=== PATIENT | female | born 1945 | race Caucasian/White ===

== ENCOUNTER 2016-05-27 10:53 | Day surgery (SDC) | payer MEDICARE ==
[2016-05-23 16:35] VITALS: BMI 33.7
[~2016-05-27 10:53] MED LIST: DEXAMETHASONE SOD PHOSPHATE 10 MG/ML 1 ML VIAL IV ONE; LACTATED RINGERS 1,000 ML IV SCH; LIDOCAINE 1% 20 ML VIAL (10MG/ML) FOR IV START INTRADERMA PRN; MIDAZOLAM 2 MG/2 ML VIAL IV PRN; ONDANSETRON 4 MG/2 ML VIAL IVP ONE; SCOPOLAMINE 1.5MG/72HR PATCH TRANSDERM ONE
[2016-05-27] MEDS: FLURBIPROFEN 0.03% OPHTH DROPS 2.5 ML BTL OP ONE ×3 (11:31→11:50)
[2016-05-27 11:33] VITALS: RESP 16; TEMP 98.1
[2016-05-27] MEDS: CYCLOPENTOLATE 1% OPHTH SOLN 2 ML BTL OP ONE ×3 (11:34→11:53)
[2016-05-27] MEDS: PHENYLEPHRINE 10% OPHTH DROPS 5 ML BTL OP ONE ×3 (11:40→11:56)
[2016-05-27] MEDS ORDERED: PROPOFOL 10 MG/ML 20 ML VIAL IV ONE (12:18)
[2016-05-27] MEDS ORDERED: BALANCED SALT IRRIG SOLN COMB2 15 ML IRRIG.SOLN INTRAOCULA ONE (12:36)
[2016-05-27] MEDS ORDERED: HYALURONATE SODIUM INTRAOCULAR 1 EACH SYRINGE (10MG/ML) INTRAOCULA ONE (12:36)
[2016-05-27] MEDS ORDERED: EPINEPHrine (PF) 0.5 ML in BALANCED SALT IRRIG SOLN COMB2 500 ML IRRIGATION ONE (12:37)
--- NOTE | 2016-05-27 12:43 | P.OP ---
Date of Procedure: 05/27/16 Procedure(s) Performed: PREOPERATIVE DIAGNOSIS: Cataract, right eye. POSTOPERATIVE DIAGNOSIS: Cataract, right eye. OPERATION: Phacoemulsification cataract, right eye. DESCRIPTION OF PROCEDURE: The patient was taken to the preoperative holding area. Intravenous Propofol was given so as to bring about adequate sedation. The following mixture was given for local anesthesia: 5 mL of 2% lidocaine, 5 mL of 0.75% Marcaine, and 1 mL of Wydase. Approximately 4 mL was injected in the retrobulbar space of the surgical eye. Additional 1 mL was then directed to the temporal area of the surgical eye. This was performed to allow adequate neurological block of the facial muscles. The patient was revived and then taken into the operative room. The patient was prepped and draped in the usual sterile manner for the operative eye. A lid speculum was put into position. The conjunctiva was resected back from the limbus in the 12 o'clock position. Bleeding was controlled with electrocautery. A #69 blade was then used and a half-thickness scleral incision approximately 1-mm posterior to the limbus was made on bare sclera. This was shelved in the clear cornea using a crescent knife. Next a 15-degree blade was used to make a stab incision at the 3 o' clock position at the corneolimbal interface. Keratome blade was then used and the superior wound was extended into the anterior chamber. Viscoelastic was injected into the anterior chamber and to maintain its form. Next, a cystotome was used and a continuous anterior capsulotomy was made without difficulty. Hydrodissection using a blunt cannula and BSS was performed. Phaco probe was then employed and a groove extending from 12 to 6 o'clock in the lens was created. A Victorino wand was used through the stab incision so as to perform a divide and conquer technique. Next an irrigation aspiration probe was utilized and any residual cortex was removed from the eye. Again, viscoelastic was injected into the anterior chamber. An Patrice posterior chamber lens implant was placed in the cartridge and injected into the anterior chamber without difficulty. The [employer] Medical[employer] hook was utilized to spin the lens into position and this was again performed without any difficulty. The irrigation and aspiration probe was again employed and any residual viscoelastic was removed from the eye. Then BSS was injected into the limbal stab incision and the anterior chamber re-inflated. The conjunctiva was reapproximated using electrocautery. One drop of 0.25% Timoptic was placed over the corneal along with TobraDex ophthalmic ointment. Two sterile patches and a Foster eye shield were taped into position. The patient was transported to the recovery room in stable condition. Pathology: none sent Condition: stable Disposition: same day
[2016-05-27 12:53] VITALS: BP 139/78; PULSE 88
[2016-05-27] MEDS ORDERED: BUPIVACAINE (PF) 0.75% 5 ML, LIDOCAINE 4% (PF) 5 ML, HYALURONIDASE, HUMAN RECOMB 150 UNIT MISCELLANE ONE ×3 (23:00)
[2016-05-27] MEDS ORDERED: GENTAMICIN/PREDNISOL AC OPHTH OINT 3.5GM OPHTHALMIC ONE (23:00)
[2016-05-27] MEDS ORDERED: TIMOLOL 0.5% OPHTH SOLN (PF) 0.2 ML DROPERETTE OP ONE (23:00)
== END 2016-05-27 13:40 | disposition home or self-care (01) ==
LOC: OR 10:53
PROVIDERS: ATTEND Ophthalmology
DX: H26.9 Unspecified cataract (principal); I10 Essential (primary) hypertension; Z79.899 Other long term (current) drug therapy
CPT/HCPCS: 66984; V2632; J2001; J3470; J0171; J2704; 99152; 99153

== ENCOUNTER 2017-10-16 20:32 | Emergency (ER) | payer MEDICARE ==
[2017-10-16 20:44] VITALS: BP 157/85; PULSE 85; RESP 16; TEMP 98.4
--- NOTE | 2017-10-16 21:38 | ED ---
Extremity Problem HPI - General Chief complaint: Extremity Problem,Nontraumatic Stated complaint: Knee injury Time Seen by Provider: 10/16/17 21:29 Source: patient, RN notes reviewed Mode of arrival: wheelchair Limitations: no limitations - History of Present Illness Initial comments: This is a 72-year-old female who presents to the emergency department with chief complaint of left knee pain. Patient states that last week her left knee locked up as her dog tried to pull her. She states that for the next couple of days she experienced some left knee pain. She states that this then went away. Today while walking up a set of stairs she went to bear weight on the left leg and her left knee gave out. She states that pain is felt behind her knee and the medial aspect of her knee. She states that she has been taking Tylenol and applying a cream that was prescribed for arthritis. Patient does state that she has an appointment scheduled with Dr. Marcus of orthopedics for Thursday. She denies any other injuries or trauma. Denies fevers or chills, chest pain or shortness of breath, abdominal pain, nausea or vomiting. - Related Data Home Medications Medication Instructions Recorded Confirmed Albuterol Sulfate [Proair Hfa] 2 puff INHALATION RT-Q6H PRN 04/14/16 10/16/17 Cholecalciferol [Vitamin D3] 2,000 unit PO DAILY 04/14/16 10/16/17 Cranberry + Vit C 1 tab PO BID 04/14/16 10/16/17 Magnesium Gluconate [Magonate] 500 mg PO DAILY 04/14/16 10/16/17 Triamterene-Hctz 37.5-25Mg 1 tab PO DAILY 04/14/16 10/16/17 [Maxzide 37.5-25] Diclofenac Sodium [Voltaren Gel] 2 gram TOPICAL BID PRN 10/16/17 10/16/17 Vitamin E (Dl,Tocopheryl Acet) 400 unit PO DAILY 10/16/17 10/16/17 [Vitamin E] Allergies Allergy/AdvReac Type Severity Reaction Status Date / Time mold,mildew,dog Allergy Cough Uncoded 10/16/17 20:44 Review of Systems ROS Statement: Those systems with pertinent positive or pertinent negative responses have been documented in the HPI. ROS Other: All systems not noted in ROS Statement are negative. Past Medical History Past Medical History: Eye Disorder, Hypertension, Musculoskeletal Disorder, Osteoarthritis (OA), Pneumonia Additional Past Medical History / Comment(s): optical migraines. MINOR irregular heartbeat. Tested positive for lupus 20 yrs ago. SPINAL STENOSIS. GETS ALLERGY INJ WEEKLY. CATARACT RT EYE. History of Any Multi-Drug Resistant Organisms: None Reported Past Surgical History: Section, Hysterectomy, Orthopedic Surgery Additional Past Surgical History / Comment(s): chester carpal tunnel, rt shoulder rotator cuff. EXC LT CATARACT 04/15/16. Past Anesthesia/Blood Transfusion Reactions: Motion Sickness Past Psychological History: No Psychological Hx Reported Smoking Status: Former smoker - Past Family History Father Family Medical History: Cancer Mother Family Medical History: Deep Vein Thrombosis (DVT) General Exam - General Exam Comments Initial Comments: General: Awake and alert, well-developed; in no apparent distress. Lying comfortably on ED stretcher with at bedside. HEENT: Head atraumatic, normocephalic. Pupils are equal, round and reactive to light. Extraocular movements intact. Oropharynx moist without erythema or exudate. Neck: Supple. Normal ROM. Cardiovascular: Regular rate and rhythm. No murmurs, rubs or gallops. Chest symmetrical. Respiratory: Lungs clear to auscultation bilaterally. No wheezes, rales or rhonchi. Normal respiratory effort with no use of accessory muscles. Musculoskeletal: Normal range of motion of the left knee, however pain is elicited with partial flexion. Positive valgus stress. No soft tissue swelling, ecchymosis or erythema. No gross deformities. Sensation is intact. Pedal pulses are 2+ equal and palpable bilaterally. Skin: [place], warm and dry without rashes or lesions. Neurological: Alert and oriented x3. CN II-XII grossly intact. Speech is fluent and answers are appropriate. No focal neuro deficits. Psychiatric: Normal mood and affect. No overt signs of depression or anxiety noted. Limitations: no limitations Course Vital Signs 10/16/17 20:40 Temperature 98.4 F Pulse Rate 85 Respiratory 16 Rate Blood Pressure 157/85 O2 Sat by Pulse 97 Oximetry Medical Decision Making - Medical Decision Making This is a 72-year-old female who presents to the emergency department with chief complaint of left knee pain. Patient reports her left knee giving out while going up some stairs today. She complains of pain to the posterior and medial aspect of the left knee. X-ray was obtained which revealed no acute abnormalities. Patient provided with a knee immobilizer. Recommended ibuprofen or Tylenol, ice and follow-up with Dr. Marcus on Thursday as scheduled. Patient is in agreement with plan and voices understanding. All questions were answered. - Radiology Data Radiology results: report reviewed, image reviewed X-ray left knee impression: Negative left knee exam. Disposition Clinical Impression: Acute internal derangement of left knee Disposition: HOME SELF-CARE Condition: Good Instructions: Knee Sprain (ED), Knee Immobilizer (ED) Additional Instructions: Please rest, ice, elevate and wear knee immobilizer while ambulating. Please follow up with Dr. Marcus on Thursday as scheduled. Please follow up with primary care provider within 1-2 days. Return to emergency department if symptoms should worsen or any concerns arise. Is patient prescribed a controlled substance at d/c from ED?: No Referrals: Arjun Hill MD [Primary Care Provider] - 1-2 days Time of Disposition: 22:12
--- NOTE | 2017-10-16 21:58 | XR ---
EXAMINATION TYPE: XR knee complete LT DATE OF EXAM: 10/16/2017 COMPARISON: NONE HISTORY: Left knee pain TECHNIQUE: 3 views FINDINGS: I see no fracture nor dislocation. Joint spaces are normal. There is some spurring on the s uperior patella. IMPRESSION: Negative left knee exam.
== END 2017-10-16 22:30 | disposition home or self-care (01) ==
LOC: EC 20:32
DX: S89.92XA Unspecified injury of left lower leg, initial encounter (principal); Z87.891 Personal history of nicotine dependence; Z79.899 Other long term (current) drug therapy; Z91.09 Other allergy status, other than to drugs and biological substances; Z98.890 Other specified postprocedural states; X58.XXXA Exposure to other specified factors, initial encounter
CPT/HCPCS: 73562; 99283; L1830 ×2

== ENCOUNTER → 2017-11-17 | Outpatient (CLI) | payer MEDICARE ==
--- NOTE | 2017-11-17 15:31 | US ---
EXAMINATION TYPE: US venous doppler duplex LE LT DATE OF EXAM: 11/17/2017 3:21 PM COMPARISON: NONE CLINICAL HISTORY: I80.9 left Lower ext DVT. SIDE PERFORMED: Left TECHNIQUE: The lower extremity deep venous system is examined utilizing real time linear array sonog marisol with graded compression, doppler sonography and color-flow sonography. VESSELS IMAGED: External Iliac Vein (EIV) Common Femoral Vein Deep Femoral Vein Greater Saphenous Vein * Femoral Vein Popliteal Vein Small Saphenous Vein * Proximal Calf Veins (* superficial vessels) Left Leg: Negative for DVT Grayscale, color doppler, spectral doppler imaging performed of the deep veins of the left lower ext remity. There is normal flow, compressibility, vascular waveforms. IMPRESSION: No ultrasound evidence for acute DVT in the left lower extremity.
== END | disposition home or self-care (01) ==
LOC: RADUSWWP 14:51
PROVIDERS: ATTEND Orthopaedic Surgery
DX: I80.9 Phlebitis and thrombophlebitis of unspecified site (principal); M17.12 Unilateral primary osteoarthritis, left knee; M79.662 Pain in left lower leg; M25.562 Pain in left knee

== ENCOUNTER → 2018-08-11 | Day surgery (SDC) | payer MEDICARE ==
[2018-08-06 13:52] VITALS: BMI 34.1
[~2018-08-11] MED LIST changes: +ALBUTEROL NEBULIZED 2.5 MG/3 ML INHALATION SCH; +ATROPINE SULFATE 0.4 MG/ML 1 ML VIAL IM ONE; -DEXAMETHASONE SOD PHOSPHATE 10 MG/ML 1 ML VIAL IV ONE; +GLYCOPYRROLATE 0.2 MG/ML 2 ML VIAL ONE; +KETAMINE 10 MG/ML 20 ML VIAL ONE; +LIDOCAINE 1% 20 ML VIAL (10MG/ML) FOR IV START INTRADERMA ONE; -LIDOCAINE 1% 20 ML VIAL (10MG/ML) FOR IV START INTRADERMA PRN; +LIDOCAINE 1% INJ 10MG/ML (20 ML MDV) ONE; +LIDOCAINE 2% INJ 20 MG/ML INTRATRACH ONE; -MIDAZOLAM 2 MG/2 ML VIAL IV PRN; +MIDAZOLAM 2 MG/2 ML VIAL ONE; -ONDANSETRON 4 MG/2 ML VIAL IVP ONE; +PROPOFOL 10 MG/ML 20 ML VIAL IV ONE; -SCOPOLAMINE 1.5MG/72HR PATCH TRANSDERM ONE; +fentaNYL (PF) 50 MCG/ML 2 ML AMP ONE
[2018-08-11 11:22] VITALS: TEMP 98.3
--- NOTE | 2018-08-11 13:11 | PCN ---
PROCEDURE NOTE PROCEDURE: Bronchoscopy, airway examination, therapeutic lavage, BAL right middle lobe. PREOPERATIVE DIAGNOSIS: Chronic cough, asthma, and increasing airway secretions. POSTOPERATIVE DIAGNOSIS: Chronic cough, asthma, and increasing airway secretions. OPERATORS: Dr. Chua and Dr. Todd. Armando Brody CRNA provided unconscious sedation and general anesthesia. PROCEDURE: The patient's procedure was done in room #1. There was informed consent and universal timeout. After the patient was adequately sedated and being fully monitored, the bronchoscope was inserted through the right nostril. It passed through the right nasopharynx into the oropharynx. The hypopharynx was identified and topicalized. The hypopharyngeal structures appeared to be relatively normal including anterior commissure, true cords, false cords, arytenoids, piriform sinuses, right and left vallecula and epiglottis. After topicalization, the bronchoscope was pushed through the glottic opening into the trachea. Trachea appeared normal. Tracheal sandip was sharp. Next, there was topicalization of the right and left mainstem. Right upper lobe and its 3 segments, right middle lobe and its 2 segments, right lower lobe and its 5 segments, left upper lobe proper and its 2 segments, lingula and its 2 segments and left lower lobe and its 4 segments all appeared relatively normal. There were some mild to moderate bronchitis. There was no dominant mass or tumor. There were some secretions noted. They were thin and foamy. There was no bleeding. There was minimal mucosal friability. The vasculature was not engorged. The bronchoscope was then wedged into the right middle lobe. The BAL took place. The patient tolerated the procedure well and the bronchoscope was withdrawn afterwards. The patient will be recovered. There was no immediate complication. MMODL / IJN: [id number] /
[2018-08-11 13:41] VITALS: BP 112/80; PULSE 90; RESP 17
[2018-08-11 17:57] LABS: Appearance,BF Clear; Nucleated Cells, Body Fluid 215 /uL; RBC, Body Fluid 20 /uL
[2018-08-11 17:59] LABS: Mononuclear WBC,Body Fluid 91 %; Polynuclear WBC,Body Fluid 4 %; Total Cells Counted,Body Fluid 100
== END | disposition home or self-care (01) ==
LOC: ORWHC2ENDO 10:49
PROVIDERS: ATTEND Internal Medicine Critical Care Medicine
DX: J45.909 Unspecified asthma, uncomplicated (principal); I10 Essential (primary) hypertension; R05 Cough; M19.90 Unspecified osteoarthritis, unspecified site; Z79.899 Other long term (current) drug therapy; Z88.8 Allergy status to other drugs, medicaments and biological substances
CPT/HCPCS: 87798 ×5; 87529 ×2; 94640; 87496; 87498; 88108; 88305; 89050; 87252; 87502; 87634; 87070; 87205; 87116; 87102; 87206; 31624; J2001 ×2; J2250; J0461; J3010; J2704

== ENCOUNTER → 2018-08-12 | Outpatient (CLI) | payer MEDICARE ==
--- NOTE | 2018-08-12 15:19 | CT ---
EXAMINATION TYPE: CT chest w con DATE OF EXAM: 08/12/2018 COMPARISON: None HISTORY: 73 year-old female chronic cough Chronic cough. TECHNIQUE: Contiguous axial scanning of the chest after the administration of 100 mL of Isovue M300. Coronal/sagittal reconstructions performed. CT DLP: 661mGycm. Automatic exposure control utilized for a dose reduction. FINDINGS: Heart normal size without pericardial effusion. Mildly ectatic ascending aorta 3.5 cm. Conventional arterial vessel branching anatomy. No thoracic lymphadenopathy by CT size criteria. Evaluation of the lungs shows mild diffuse bronchial wall thickening. 6 mm groundglass nodule medial right base axial image 43. 6 mm medial right lower lobe pulmonary nodule axial image 33. Larger 1.2 cm groundglass nodule posterior right lower lobe, axial image 36. Subpleural groundglass nodule measuring 9 mm peripheral right base, axial image 46. 4 mm posterior left basilar pulmonary nodule, axial image 51. Small hiatal hernia. A couple hepatic cysts are present measuring up to 2.3 cm. Also within the visualized upper abdomen i s a mixed fat and soft tissue density lesion exophytic from the posteromedial upper pole left kidney measuring 3.4 cm. Bones: Degenerative disc disease mid to lower thoracic spine. IMPRESSION: 1. Mild bronchial wall thickening could represent bronchitis or asthma. 2. Scattered lower lung groundglass nodularity (measuring up to 1.2 cm). Nonspecific infectious/infla mmatory foci are suggested. 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 Follow-up in 3-6 months to reassess. 3. A couple solid pulmonary nodules measuring up to 6 mm. These should also be reassessed at follow-u p. 4. 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
== END ==
LOC: RADCTMAIN 11:06
PROVIDERS: ATTEND Internal Medicine Critical Care Medicine
DX: R91.8 Other nonspecific abnormal finding of lung field (principal)
CPT/HCPCS: 82565; 84520; 71260; 36415; Q9967

== ENCOUNTER → 2018-09-23 | Outpatient (CLI) | payer MEDICARE ==
[2018-09-23 17:22] LABS: Basophils # (A) 0.1 k/uL (0-0.2); Basophils % (A) 1 %; Eosinophils # (A) 0.2 k/uL (0-0.7); Eosinophils % (A) 2 %; HCT 45.3 % (34.0-46.0); HGB 14.8 gm/dL (11.4-16.0); Lymphocytes # (A) 2.3 k/uL (1.0-4.8); Lymphocytes % (A) 26 %; MCH 28.6 pg (25.0-35.0); MCHC 32.6 g/dL (31.0-37.0); MCV 87.9 fL (80.0-100.0); Monocytes # (A) 0.5 k/uL (0-1.0); Monocytes % (A) 5 %; Neutrophils % (A) 65 %; Platelet Count 266 k/uL (150-450); RBC 5.15 m/uL (3.80-5.40); RDW 14.4 % (11.5-15.5); WBC 9.2 k/uL (3.8-10.6)
[2018-09-23 23:32] LABS: Anion Gap 10.5 mmol/L (4.00-12.00); Carbon Dioxide 25.5 mmol/L (21.6-31.8); Potassium 3.8 mmol/L (3.5-5.5)
== END | disposition home or self-care (01) ==
LOC: LABWHC1 16:12
PROVIDERS: ATTEND Thoracic Surgery (Cardiothoracic Vascular Surgery)
DX: Z01.818 Encounter for other preprocedural examination (principal); Z01.812 Encounter for preprocedural laboratory examination; R91.8 Other nonspecific abnormal finding of lung field
CPT/HCPCS: 36415; 80051; 82565; 84520; 85025; 93005

== ENCOUNTER 2018-10-07 09:34 | Day surgery (SDC) | payer MEDICARE ==
[~2018-10-07 09:34] MED LIST changes: -ALBUTEROL NEBULIZED 2.5 MG/3 ML INHALATION SCH; -ATROPINE SULFATE 0.4 MG/ML 1 ML VIAL IM ONE; +DEXAMETHASONE SOD PHOSPHATE 10 MG/ML 1 ML VIAL IV ONE; -GLYCOPYRROLATE 0.2 MG/ML 2 ML VIAL ONE; -KETAMINE 10 MG/ML 20 ML VIAL ONE; -LIDOCAINE 1% 20 ML VIAL (10MG/ML) FOR IV START INTRADERMA ONE; +LIDOCAINE 1% 20 ML VIAL (10MG/ML) FOR IV START INTRADERMA PRN; -LIDOCAINE 1% INJ 10MG/ML (20 ML MDV) ONE; -LIDOCAINE 2% INJ 20 MG/ML INTRATRACH ONE; +MIDAZOLAM 2 MG/2 ML VIAL IV PRN; -MIDAZOLAM 2 MG/2 ML VIAL ONE; +ONDANSETRON 4 MG/2 ML VIAL IVP ONE; -PROPOFOL 10 MG/ML 20 ML VIAL IV ONE; +SCOPOLAMINE 1.5MG/72HR PATCH TRANSDERM ONE; +ceFAZolin IN SWFI 2 GM/20 ML SYRINGE IVP ONE; -fentaNYL (PF) 50 MCG/ML 2 ML AMP ONE
[2018-10-07] MEDS ORDERED: LACTATED RINGERS 1,000 ML IV ONE ×2 (10:07→15:19)
[2018-10-07] MEDS ORDERED: BUPIVACAINE (PF) 0.5% 30 ML VIAL SQ ONE ×2 (15:11)
[2018-10-07] MEDS ORDERED: GLYCOPYRROLATE 0.2 MG/ML 2 ML VIAL ONE (15:38)
[2018-10-07] MEDS ORDERED: LIDOCAINE 1% INJ 10MG/ML (20 ML MDV) ONE (15:38)
[2018-10-07] MEDS ORDERED: MIDAZOLAM 2 MG/2 ML VIAL ONE (15:38)
[2018-10-07] MEDS ORDERED: NEOSTIGMINE 1 MG/ML 10 ML VIAL ONE (15:38)
[2018-10-07] MEDS ORDERED: SUCCINYLCHOLINE CHLORIDE 100 MG/5 ML SYR IV ONE (15:38)
[2018-10-07] MEDS ORDERED: fentaNYL (PF) 50 MCG/ML 2 ML AMP ONE (15:38)
[2018-10-07] MEDS ORDERED: PROPOFOL 10 MG/ML 20 ML VIAL IV ONE (15:38)
[2018-10-07] MEDS ORDERED: ROCURONIUM BROMIDE 10 MG/ML 10 ML VIAL IV ONE (15:38)
[2018-10-07] MEDS: HYDROmorphone 0.5 MG/0.5 ML SYRINGE IVP PRN ×6 (15:39→16:40)
--- NOTE | 2018-10-07 16:01 | P.OP ---
Date of Procedure: 10/07/18 Preoperative Diagnosis: Bilateral pulmonary infiltrates Postoperative Diagnosis: Same Procedure(s) Performed: Thoracoscopic right lung biopsy Anesthesia: MARTIN Surgeon: Zeus Rogers Racing Driver #1: Kyle Meraz Estimated Blood Loss (ml): 20 IV fluids (ml): 900 Pathology: other (Biopsies of right upper middle and lower lobe all sent for pathology and cultures including AFB and fungus) Condition: stable Disposition: PACU Indications for Procedure: 73-year-old female with progressive dyspnea and evidence of interstitial disease bilaterally by computed tomography scan. Lung biopsy requested by pulmonary medicine Operative Findings: Lower lobe and middle lobe both showed evidence of interstitial disease. Upper lobe looked more normal. Description of Procedure: The patient was brought to the operating room, placed supine on the operating table, anesthetized and intubated with a double-lumen endotracheal tube. Tube was positioned with fiberoptic bronchoscopy and secured. The patient was turned the left lateral decubitus position. The right chest was sterilely prepped and draped. 3 one-inch incisions were made in the right chest and a video thoracoscope was introduced through one. Single lung ventilation had been initiated upon draping. Good pneumothorax was established. Multiple firings of an Endo HECTOR stapler were used to obtain biopsies of the lower middle and upper lobes. These were split on the back table and a portion sent for culture and the remainder for path. On completion of the procedure, 28-Swazi chest tube was placed through separate stab incision and positioned posterior apically. Secured with 0 Ethibond suture. Was connected to a Pleur-evac. The lung was inflated and ventilated by anesthesia. Rib blocks were performed at the level of the incisions with half percent Marcaine. The incisions were closed with layers of Vicryl suture. Dry sterile dressings were applied and the patient was turned supine and extubated and transferred to recovery in stable condition.
--- NOTE | 2018-10-07 16:02 | XR ---
EXAMINATION TYPE: XR chest 1V portable DATE OF EXAM: 10/07/2018 COMPARISON: CT chest 08/12/2018, chest x-ray 01/11/2016 HISTORY: Chest tube placement TECHNIQUE: Single frontal view of the chest is obtained. FINDINGS: Right-sided chest tube is in place. There is subcutaneous emphysema. No sizable pneumothor ax or pleural effusion. Suspect there is suture material status post wedge resection in the left lowe r lung laterally. Heart size is normal. Patient is rotated. There are overlying cardiac leads. IMPRESSION: Postop changes.
[2018-10-07] MEDS ORDERED: BISACODYL 10 MG SUPP RECTAL PRN (18:58)
[2018-10-07] MEDS ORDERED: DEXTROSE 5%-0.45% NACL 1,000 ML IV SCH (18:58)
[2018-10-07] MEDS ORDERED: ONDANSETRON 4 MG/2 ML VIAL IVP PRN (18:58)
[2018-10-07] MEDS ORDERED: IPRATROPIUM-ALBUTEROL 3 ML NEB IH PRN (18:58)
[2018-10-07 19:23] VITALS: BMI 34.9
[2018-10-07] MEDS: ACETAMINOPHEN IV (For NPO) 1,000 MG in EMPTY BAG 1 BAG IVPB SCH ×2 (20:40→22:58)
[2018-10-07] MEDS: IPRATROPIUM-ALBUTEROL 3 ML NEB IH SCH (21:16)
[2018-10-07] MEDS: ceFAZolin IN SWFI 2 GM/20 ML SYRINGE IVP SCH (21:40)
[2018-10-07] MEDS: KETOROLAC 30 MG/ML 1 ML VIAL IVP SCH ×2 (21:41→22:59)
[2018-10-07] MEDS: HEPARIN SODIUM,PORCINE 5,000 UNIT/ML 1 ML VIAL SQ SCH ×2 (21:47→22:59)
[2018-10-08] MEDS: ceFAZolin IN SWFI 2 GM/20 ML SYRINGE IVP SCH (05:07)
[2018-10-08] MEDS: KETOROLAC 30 MG/ML 1 ML VIAL IVP SCH ×2 (05:07→15:15)
[2018-10-08] MEDS: ACETAMINOPHEN IV (For NPO) 1,000 MG in EMPTY BAG 1 BAG IVPB SCH (05:08)
[2018-10-08 06:01] VITALS: RESP 18
[2018-10-08] MEDS: IPRATROPIUM-ALBUTEROL 3 ML NEB IH SCH ×2 (07:18→11:02)
[2018-10-08 07:24] LABS: Basophils % (A) 0 %; Eosinophils # (A) 0.1 k/uL (0-0.7); Eosinophils % (A) 1 %; HCT 40.8 % (34.0-46.0); Lymphocytes # (A) 1.7 k/uL (1.0-4.8); Lymphocytes % (A) 18 %; MCH 27.5 pg (25.0-35.0); MCV 86.1 fL (80.0-100.0); Mean Platelet Volume 6.7; Monocytes # (A) 0.6 k/uL (0-1.0); Monocytes % (A) 6 %; Neutrophils # (A) 7.1 k/uL (1.3-7.7); Neutrophils % (A) 73 %; Platelet Count 313 k/uL (150-450); RBC 4.74 m/uL (3.80-5.40); RDW 14.5 % (11.5-15.5); WBC 9.6 k/uL (3.8-10.6)
[2018-10-08 07:36] LABS: African American GFR (CKD) >90 (>60 ml/min/1.73 sqM); Anion Gap 5 mmol/L; Blood Urea Nitrogen 14 mg/dL (7-17); Calcium 8.5 mg/dL (8.4-10.2); Carbon Dioxide 29 mmol/L (22-30); Chloride 105 mmol/L (98-107); Glucose 105 mg/dL (74-99); Potassium 3.7 mmol/L (3.5-5.1); Sodium 139 mmol/L (137-145)
[2018-10-08] MEDS ORDERED: ACETAMINOPHEN TAB 500 MG TAB PO PRN (08:34)
[2018-10-08] MEDS ORDERED: TRIAMTERENE-HCTZ 37.5-25MG 1 EACH TAB PO SCH (09:00)
[2018-10-08] MEDS ORDERED: CHOLECALCIFEROL 1,000 UNIT TAB PO SCH (09:00)
[2018-10-08] MEDS ORDERED: MAGNESIUM OXIDE 400 MG TAB PO SCH ×2 (09:00→21:00)
[2018-10-08] MEDS: HEPARIN SODIUM,PORCINE 5,000 UNIT/ML 1 ML VIAL SQ SCH (09:05)
--- NOTE | 2018-10-08 09:16 | XR ---
EXAMINATION TYPE: XR chest 1V portable DATE OF EXAM: 10/08/2018 HISTORY: Follow-up chest tube COMPARISON: 10/07/2018 TECHNIQUE: Single view of the chest is submitted. FINDINGS: Right-sided chest tube is in place and unchanged in position. I do not see evidence for sizable pneum othorax. Small amount of subcutaneous air persists. The left lung is clear. There is no evidence for focal infiltrate. The heart is stable. Hilar and mediastinal structures are within normal limits. Degenerative changes are seen of the dorsal spine. IMPRESSION: 1. Stable chest.
[2018-10-08 12:00] VITALS: BP 116/62; PULSE 93; TEMP 98
--- NOTE | 2018-10-08 12:33 | P.CNPUL ---
History of Present Illness Consult date: 10/08/18 Requesting physician: Zeus Rogers Reason for consult: other Chief complaint: Thoracoscopic right lung biopsy History of present illness: This is a 73-year-old white female patient of Dr. Dominguez with history of arthritis, spinal stenosis, chronic cough, and complaints of shortness of breath for the last 3 years. Initially patient was treated with Breo-Ellipta, and Singulair for presumable bronchial asthma, although her methacholine challenge test was negative. Patient did not respond to inhalers and Singulair. She underwent ALLERGY testing and ALLERGY shots which did not help either. Patient had bronchoscopy and airway examination that was negative. CT scan of the chest was suggestive of bronchiolitis obliterans organizing pneumonia, patient was started on prednisone, and she was referred to cardiothoracic surgery for consideration of video-assisted thoracoscopic lung biopsy to which she agreed. On 10/07/2018 patient underwent thoracoscopic right lung biopsy, and intraoper ative findings showed evidence of interstitial disease involving the right lower lobe and right middle lobe, and upper lobe looked normal. Today is postoperative day 1, she is seen on selective care unit, resting comfortably in bed, room air pulse ox is 96%, afebrile, hemodynamically stable. Right-sided chest tube is in place, connected to Pleur-evac which is off the wall suction currently, no evidence of air leak. There is small amount of serosanguineous thin output in the Pleur-evac, today's chest x-ray showed no evidence of sizable pneumothorax, small amount of subcutaneous air, and left lung was clear. No evidence of focal infiltrate. Lung wedge biopsy is still pending at this time, when the patient is stable, she needs incentive spirometer. Lung sounds reveal diminished breath sounds on the right. She does have some incisional chest pain with deep breathing and coughing. No acute distress. Review of Systems All systems: negative Constitutional: Denies chills, Denies fever Eyes: denies blurred vision, denies pain Ears, nose, mouth and throat: Denies headache, Denies sore throat Cardiovascular: Denies chest pain, Denies shortness of breath Respiratory: Reports cough, Reports dyspnea Gastrointestinal: Denies abdominal pain, Denies diarrhea, Denies nausea, Denies vomiting Genitourinary: Denies dysuria, Denies hematuria Musculoskeletal: Denies myalgias Integumentary: Denies pruritus, Denies rash Neurological: Denies numbness, Denies weakness Psychiatric: Denies anxiety, Denies depression Endocrine: Denies fatigue, Denies weight change Past Medical History Past Medical History: Eye Disorder, Hypertension, Osteoarthritis (OA) Additional Past Medical History / Comment(s): optical migraines. told years ago-irregular heartbeat. Tested positive for lupus 20 yrs ago. SPINAL STENOSIS, chronic cough, swelling and bruising on ankles, CT showed "irregularities in bottom of lung", urinary leakage History of Any Multi-Drug Resistant Organisms: None Reported Past Surgical History: Section, Hysterectomy, Orthopedic Surgery Additional Past Surgical History / Comment(s): araseli carpal tunnel, rt shoulder rotator cuff. EXC ARASELI CATARACT Past Anesthesia/Blood Transfusion Reactions: Motion Sickness Additional Past Anesthesia/Blood Transfusion Reaction / Comment(s): "sensitive to anesthesia-real groggy after" Past Psychological History: No Psychological Hx Reported Smoking Status: Former smoker Past Alcohol Use History: Occasional Additional Past Alcohol Use History / Comment(s): smoked for 5 yrs- quit age 24. < 1PPD Past Drug Use History: Marijuana Additional Drug Use History / Comment(s): cbd cream - Past Family History Father Family Medical History: Cancer Additional Family Medical History / Comment(s): pancreatic cancer Mother Family Medical History: Deep Vein Thrombosis (DVT) Medications and Allergies Home Medications Medication Instructions Recorded Confirmed Type Albuterol Sulfate [Proair Hfa] 2 puff INHALATION Q6HR PRN 04/14/16 10/07/18 History Cholecalciferol [Vitamin D3] 4,000 unit PO DAILY 04/14/16 10/07/18 History Cranberry + Vit C 1 tab PO BID 04/14/16 10/07/18 History Triamterene-Hctz 37.5-25Mg 1 tab PO DAILY 04/14/16 10/07/18 History [Maxzide 37.5-25] Magnesium Oxide 400 mg PO DAILY 10/05/18 10/07/18 History Allergies Allergy/AdvReac Type Severity Reaction Status Date / Time adhesive tape Allergy red skin Verified 10/05/18 13:14 with prolonged use montelukast [From Singulair] Allergy depression Verified 10/05/18 13:14 mold, mildew Allergy Cough Uncoded 10/05/18 13:34 Physical Exam Vitals: Vital Signs Temp Pulse Pulse Resp BP Pulse Ox 10/08/18 11:22 68 10/08/18 11:00 72 10/08/18 08:00 98.0 F 93 116/62 96 10/08/18 07:28 72 10/08/18 07:18 68 10/08/18 04:00 98.4 F 75 18 131/80 95 10/08/18 00:00 85 16 10/07/18 21:27 72 10/07/18 21:16 71 10/07/18 20:00 85 16 10/07/18 17:30 85 16 129/63 98 10/07/18 17:15 68 18 131/72 97 10/07/18 17:00 72 16 130/71 98 10/07/18 16:45 66 16 123/60 98 10/07/18 16:30 80 14 137/65 97 10/07/18 16:15 67 16 129/61 98 10/07/18 16:00 81 14 119/59 97 10/07/18 15:45 90 16 109/67 92 L 10/07/18 15:34 97.0 F L 103 H 13 128/63 95 Intake and Output 10/07/18 10/08/18 10/08/18 22:59 06:59 14:59 Intake Total 100 240 Output Total 20 50 Balance 80 -50 240 Intake: IV 100 Oral 240 Output: Drainage 50 Right Chest 50 Estimated Blood Loss 20 Other: Weight 101.5 kg GENERAL EXAM: Alert, pleasant, 73-year-old white female comfortable in no apparent distress. HEAD: Normocephalic/atraumatic. EYES: Normal reaction of pupils, equal size. Conjunctiva pink, sclera white. NOSE: Clear with pink turbinates. THROAT: No erythema or exudates. NECK: No masses, no JVD, no thyroid enlargement, no adenopathy. CHEST: No chest wall deformity. Symmetrical expansion. Right-sided chest tube is in place, connected to Pleur-evac, off to wall suction, no evidence of air leak, is small amount of thin serosanguineous output in the Pleur-evac LUNGS: Equal air entry with no crackles, wheeze, rhonchi or dullness. CVS: Regular rate and rhythm, normal S1 and S2, no gallops, no murmurs, no rubs, diminished breath sounds on the right ABDOMEN: Soft, nontender. No hepatosplenomegaly, normal bowel sounds, no guarding or rigidity. EXTREMITIES: No clubbing, no edema, no cyanosis, 2+ pulses and upper and lower extremities. MUSCULOSKELETAL: Muscle strength and tone normal. SPINE: No scoliosis or deformity SKIN: No rashes CENTRAL NERVOUS SYSTEM: Alert and oriented -3. No focal deficits, tone is normal in all 4 extremities. PSYCHIATRIC: Alert and oriented -3. Appropriate affect. Intact judgment and insight. Results - Laboratory Findings CBC and BMP: 10/08/18 07:06 10/08/18 07:06 Abnormal lab findings: Abnormal Labs 10/08/18 07:06 Glucose 105 H - Diagnostic Findings Chest x-ray: report reviewed, image reviewed Assessment and Plan Plan: Assessment #1. Interstitial lung disease, rule out bronchiolitis obliterans organizing pneumonia/cryptogenic organizing pneumonia, status post thoracoscopic right lung biopsy, postop day 1 #2. Shortness of breath, cough related to the above for the last 3 years. Patient did not respond to Singulair and Breo-Ellipta, or ALLERGY shots. Methacholine challenge test negative #3. Hypertension #4. Osteoarthritis #5. Former smoker Plan: Provide incentive spirometer, encourage deep breathing and coughing, encourage patient to sit up in the chair, ambulate. Today's chest x-ray has been reviewed, and showed no pneumothorax, no focal infiltrates, right-sided chest tube is to water seal, anticipate possible removal of the chest tube today. CT surgery is following, and managing. No worsening dyspnea, vital signs are stable, no fever or chills, biopsies results are pending. I performed a history & physical examination of the patient and discussed their management with my nurse practitioner, Rosaura Stoddard. I reviewed the nurse practitioner's note and agree with the documented findings and plan of care. Lung sounds are positive for diminished breath sounds on the right. The findings and the impression was discussed with the patient. I attest to the documentation by the nurse practitioner. Time with Patient: Greater than 30
--- NOTE | 2018-10-08 13:47 | XR ---
EXAMINATION TYPE: XR chest 2V DATE OF EXAM: 10/08/2018 COMPARISON: Prior chest x-ray same dated earlier time HISTORY: Status post chest tube removal TECHNIQUE: Frontal and lateral views of the chest are obtained. FINDINGS: There is been interval removal of the right-sided chest tube. Minimal apical pneumothorax is present. Subcutaneous emphysema again seen. There is blunting of the right gastric angle, postop c hange status post wedge resection. IMPRESSION: Postop changes. Minimal residual apical pneumothorax.
--- NOTE | 2018-10-08 14:57 | P.DS ---
Providers Expected date of discharge: 10/08/18 Attending physician: Zeus Rogers Consults: 10/07/18 18:58 Consult Physician Routine Consulting Provider: Jn Chua Reason/Comments: Pulmonary management Do you want consulting provider notified?: Yes Primary care physician: Randi Dominguez Hospital Course: FINAL DIAGNOSIS: 1. Bilateral pulmonary infiltrates 2. Chronic cough 3. Spinal stenosis 4. Hypertension 5. Osteoarthritis 6. History of lupus 7. Remote history of nicotine dependence PRINCIPAL PROCEDURE: 1. Thoracoscopic right lung biopsy HISTORY OF PRESENT ILLNESS: This is a 73-year-old female patient who is followed by Dr. Dominguez on an outpatient basis. She has a past medical history for chronic cough, bilateral pulmonary infiltrates, spinal stenosis, hypertension, osteoarthritis, history of lupus, and a very remote history of smoking dependence. Recently, the patient has had complaints of progressive chronic cough and shortness of breath. She has been followed closely by Dr. Chua from pulmonary medicine. Subsequently due to the patient's chronic cough patient underwent a bronchoscopy and airway exam which was negative. For further jerod luation she underwent a computed tomography scan of her chest which was suggestive for bronchiolitis obliterans organizing pneumonia and was started on prednisone. Due to the patient's chronic cough and computed tomography scan of the chest results she was referred to Dr. Zeus Rogers from cardiothoracic surgery for further evaluation and treatment recommendations. Dr. Rogers met with the patient and reviewed the computed tomography scan results and findings with the patient and recommended the patient undergo a video-assisted thoracoscopic lung biopsy. Risks and benefits of the surgery were discussed with the patient and the patient wished to proceed with the VATS procedure. HOSPITAL COURSE: The patient was admitted to the hospital and after obtaining consent was taken to the operating room where Dr. Zeus Rogers performed a thoracoscopic right lung biopsy. The patient was recovered and subsequently transferred to the 3 self cardiac stepdown unit for further monitoring and rehabilitation. Her chest tube was placed to waterseal and subsequently discontinued. Her oxygen was weaned off and she was tolerating an oral diet and she is ready to be discharged home on postoperative day #1. She has received written and verbal instructions regarding her medications, activity restrictions, signs and symptoms requiring physician notification and her follow-up appointments. Her pathology results remain pending and will be discussed with her on her follow-up appointment with Dr. Zeus Rogers. COMPLICATIONS: There were no postoperative complications. CONSULTATIONS: 1. Dr. Black for pulmonary management DISCHARGE INSTRUCTIONS: 1. No driving for 2 weeks, or until physician gives their ok. 2. The patient should sleep in their own bed, no medical bed needed. 3. Stairs are not an issue. If the bedroom is upstairs, it is advised that the patient go up at night and down in the morning for the first week. Go slowly, using handrail and take 1 step at a time. 4. Continue pain control per as needed orders. 5. Continue with incentive spirometry and splinting until otherwise directed by the physician. 6. Shower daily using liquid antibacterial soap and a separate white washcloth for each individual incision starting on 10/10/2018. 7. Routine incision care, no ointments, lotions or powders on the incisions. 8. Please notify surgeon/nurse practitioner for temperature greater than 101F or purulent drainage from incisions. Plan - Discharge Summary Discharge Rx Participant: Yes New Discharge Prescriptions: New Acetaminophen Tab [Tylenol] 1,000 mg PO Q6HR PRN tab PRN Reason: Fever And/ Or Pain Continue Triamterene-Hctz 37.5-25Mg [Maxzide 37.5-25] 1 tab PO DAILY Cholecalciferol [Vitamin D3 (25 Mcg = 1000 Iu)] 4,000 unit PO DAILY Cranberry + Vit C 1 tab PO BID Albuterol Sulfate [Proair Hfa] 2 puff INHALATION Q6HR PRN PRN Reason: Shortness Of Breath Magnesium Oxide 400 mg PO DAILY Discharge Medication List Albuterol Sulfate [Proair Hfa] 2 puff INHALATION Q6HR PRN 04/14/16 [History] Cholecalciferol [Vitamin D3 (25 Mcg = 1000 Iu)] 4,000 unit PO DAILY 04/14/16 [History] Cranberry + Vit C 1 tab PO BID 04/14/16 [History] Triamterene-Hctz 37.5-25Mg [Maxzide 37.5-25] 1 tab PO DAILY 04/14/16 [History] Magnesium Oxide 400 mg PO DAILY 10/05/18 [History] Acetaminophen Tab [Tylenol] 1,000 mg PO Q6HR PRN tab 10/08/18 [Rx] Follow up Appointment(s)/Referral(s): Randi Dominguez MD [Primary Care Provider] - 10/14/18 1:00 pm () Zeus Rogers MD [STAFF PHYSICIAN] - 10/14/18 10:30 am Jn Chua DO [Doctor of Osteopathic Medicine] - 10/18/18 2:45 pm Discharge Disposition: HOME SELF-CARE
== END 2018-10-08 16:32 | disposition home or self-care (01) ==
LOC: OR 09:34 → 3SCARD 17:58 → OR 10-08 16:32
PROVIDERS: ATTEND Thoracic Surgery (Cardiothoracic Vascular Surgery)
DX: J84.89 Other specified interstitial pulmonary diseases (principal); I10 Essential (primary) hypertension; M19.90 Unspecified osteoarthritis, unspecified site; R00.8 Other abnormalities of heart beat; M32.9 Systemic lupus erythematosus, unspecified; R32 Unspecified urinary incontinence; Z87.891 Personal history of nicotine dependence; J21.9 Acute bronchiolitis, unspecified; R05 Cough; E66.9 Obesity, unspecified; Z90.710 Acquired absence of both cervix and uterus; Z80.0 Family history of malignant neoplasm of digestive organs; Z68.35 Body mass index [BMI] 35.0-35.9, adult; K21.9 Gastro-esophageal reflux disease without esophagitis; Z79.52 Long term (current) use of systemic steroids; Z79.899 Other long term (current) drug therapy; Z88.8 Allergy status to other drugs, medicaments and biological substances; Z91.048 Other nonmedicinal substance allergy status; Z91.09 Other allergy status, other than to drugs and biological substances
CPT/HCPCS: 94640 ×3; 80048; 85025; 88307; 87070; 87205; 87075; 87116; 87102; 87206; 71045 ×2; 71046; 32607; C1729; J2250; J1644 ×2; J2710; J2405; J2001; J3010; J1885 ×2; J0131 ×2; J0330; J2704; J1170; J0690 ×2

== ENCOUNTER → 2018-10-15 | Outpatient (CLI) | payer MEDICARE ==
--- NOTE | 2018-10-18 19:44 | ECHOF ---
Referral Reason:edema MEASUREMENTS -------- HEIGHT: 167.6 cm WEIGHT: 99.8 kg BP: 138/89 IVSd: 1.3 cm (0.6 - 1.1) LVIDd: 3.8 cm (3.9 - 5.3) LVPWd: 1.3 cm (0.6 - 1.1) IVSs: 1.9 cm LVIDs: 2.5 cm LVPWs: 1.5 cm LA Diam: 3.3 cm (2.7 - 3.8) RVIDd: 2.5 cm (< 3.3) LAESV Index (A-L): 18.86 ml/m Ao Diam: 3.6 cm (2.0 - 3.7) AV Cusp: 2.1 cm (1.5 - 2.6) EPSS: 0.4 cm MV E Gustavo: 0.67 m/s MV DecT: 267 ms MV A Gustavo: 0.87 m/s MV E/A Ratio: 0.77 RAP: 5.00 mmHg RVSP: 18.23 mmHg MV EF SLOPE: 60.76 mm/s (70 - 150) MV EXCURSION: 13.02 mm (> 18.000) FINDINGS -------- Sinus rhythm. This was a technically adequate study. The left ventricular size is normal. There is mild concentric left ventricular hypertrophy. Overa ll left ventricular systolic function is normal with, an EF between 60 - 65 %. The right ventricle is normal in size. Normal LA size by volume 22+/-6 ml/m2. The right atrium is normal in size. Interatrial and interventricular septum intact. The aortic valve is trileaflet and appears structurally normal. Mild mitral annular calcification present. Mild tricuspid regurgitation present. Right ventricular systolic pressure is normal at < 35 mmHg. Trace/mild (physiologic) pulmonic regurgitation. The aortic root size is normal. IVC Not well visulized. There is no pericardial effusion. CONCLUSIONS -------- 1. Sinus rhythm. 2. This was a technically adequate study. 3. The left ventricular size is normal. 4. There is mild concentric left ventricular hypertrophy. 5. Overall left ventricular systolic function is normal with, an EF between 60 - 65 %. 6. The right ventricle is normal in size. 7. Normal LA size by volume 22+/-6 ml/m2. 8. The right atrium is normal in size. 9. Interatrial and interventricular septum intact. 10. The aortic valve is trileaflet and appears structurally normal. 11. Mild mitral annular calcification present. 12. Mild tricuspid regurgitation present. 13. Right ventricular systolic pressure is normal at < 35 mmHg. 14. Trace/mild (physiologic) pulmonic regurgitation. 15. The aortic root size is normal. 16. IVC Not well visulized. 17. There is no pericardial effusion. ENRICHMENT SPECIALIST: Tori Carlton RDCS
== END | disposition home or self-care (01) ==
LOC: RADECHMAIN 13:18
PROVIDERS: ATTEND Family Medicine
DX: I83.813 Varicose veins of bilateral lower extremities with pain (principal); I08.1 Rheumatic disorders of both mitral and tricuspid valves
CPT/HCPCS: 93306

== ENCOUNTER → 2019-03-08 | Outpatient (CLI) | payer MEDICARE | LOC: CPPFTMAIN 11:45 | PROVIDERS: ATTEND Internal Medicine Critical Care Medicine | DX: J84.10 Pulmonary fibrosis, unspecified (principal) | CPT/HCPCS: 94060; 94726; 94729 ==

== ENCOUNTER → 2019-10-13 | Outpatient (CLI) | payer MEDICARE ==
--- NOTE | 2019-10-13 13:02 | CT ---
EXAMINATION TYPE: CT chest wo con DATE OF EXAM: 10/13/2019 COMPARISON: Chest CT August 12, 2018. HISTORY: follow up pulmonary fibrosis CT DLP: 931 mGycm. Automated Exposure Control for Dose Reduction was Utilized. TECHNIQUE: CT scan of the thorax is performed without IV contrast. High-resolution protocol with 1 m m sequences obtained in 10 mm intervals in supine and prone technique. FINDINGS: LUNGS: Patient has background mild to borderline moderate underlying emphysematous change. There is m ild linear scarring scattered throughout both lung bases just above the diaphragm with both anterior and anterior inferior involvement. Otherwise no significant linear fibrosis or peripheral reticulatio n is seen. No pleural effusion or pneumothorax. No suspicious pulmonary masses. No bronchiectasis. MEDIASTINUM: Lack of IV contrast is noted to limit evaluation for mediastinal and especially hilar ad enopathy. There are no definitive greater than 1 cm hilar or mediastinal lymph nodes. No cardiomega ly or pericardial effusion is seen. OTHER: There is 1.8 cm simple appearing thin-walled cyst posterior right hepatic lobe axial image 28 series 7. Moderate multilevel spurring is seen throughout the spine. Slight scoliotic curvature in t he spine. Small hiatal hernia. There is 3.5 cm round circumscribed lesion of fat and soft tissue de nsity exophytically from upper pole left kidney consistent with angiomyolipoma. This is noted on US 03/03/2011. IMPRESSION: Mild to borderline moderate underlying emphysematous change with mild lower lung linear s carring. No suspicious acute pulmonary process currently.
== END | disposition home or self-care (01) ==
LOC: RADCTMAIN 11:07
PROVIDERS: ATTEND Internal Medicine Critical Care Medicine
DX: J43.9 Emphysema, unspecified (principal); Z88.8 Allergy status to other drugs, medicaments and biological substances
CPT/HCPCS: 71250

== ENCOUNTER → 2020-06-20 | Outpatient (CLI) | payer MEDICARE ==
--- NOTE | 2020-06-20 19:00 | BD ---
EXAMINATION TYPE: Axial Bone Density DATE OF EXAM: 06/20/2020 COMPARISON: NONE CLINICAL HISTORY: 74-year-old female postmenopausal screening Height: 64 Weight: 210.8 FRAX RISK QUESTIONS: Alcohol (3 or more units per day): no Family History (Parent hip fracture): no Glucocorticoids (More than 3mos): no (Ex: prednisone, prednisolone, methylprednisolone, dexamethasone, and hydrocortisone). History of Fracture in Adulthood: yes Secondary Osteoporosis: 1. Type 1 Diabetes: no 2. Hyperthyroidism: no 3. Menopause before 45: no 4. Malnutrition: no 5. Chronic liver disease: no Rheumatoid Arthritis: no Current Tobacco Use: no RISK FACTORS HISTORY OF: History of Wrist Fracture: left wrist When: 2 years ago Family History of Osteoporosis: yes Active: no Diet low in dairy products/other sources of calcium: yes Postmenopausal woman: age 54 Lost more than 2 inches in height since high school: yes Frequent falls: yes MEDICATIONS: blood pressure meds, water pill, vitamins Additional History: EXAM MEASUREMENTS: Bone mineral densitometry was performed using the Hers System. Bone mineral density as measured about the Lumbar spine is: ----- L1-L4(G/cm2): 1.361 T Score Values are as follows: ----- L2: 0.5 ----- L3: 2.3 ----- L4: 2.6 ----- L1-L4: 1.5 Bone mineral density : baseline Bone mineral density about the R hip (g/cm2): 0.868 Bone mineral density about the L hip (g/cm2): 0.906 T Score values are as follows: -----R Neck: -1.2 -----L Neck: -1.0 -----R Total: -0.9 -----L Total: -0.4 Bone mineral density : baseline IMPRESSION: Osteopenia (T Score between -2.5 and -1). There is slightly increased risk of fracture and the patient may be considered for treatment. Re-Screen 2-5 years. NOTE: T-SCORE=SD OF THE YOUNG ADULT MEAN.
--- NOTE | 2020-06-22 11:26 | MM ---
Reason for exam: screening (asymptomatic). Last mammogram was performed 11 years and 1 month ago. History: Patient is postmenopausal. Took hormonal contraceptives for 10 years. Took estrogen for 4 years. Physical Findings: A clinical breast exam by your physician is recommended on an annual basis and results should be correlated with mammographic findings. MG 3D Screening Mammo W/Cad Bilateral CC and MLO view(s) were taken. Prior study comparison: May 07, 2009, bilateral digital screening mammogram. August 01, 2004, bilateral screening mammogram. The breast tissue is heterogeneously dense. This may lower the sensitivity of mammography. No significant changes when compared with prior studies. ASSESSMENT: Benign, BI-RAD 2 RECOMMENDATION: Routine screening mammogram of both breasts in 1 year.
== END | disposition home or self-care (01) ==
LOC: RADMAMWWP 14:35
PROVIDERS: ATTEND Family Medicine
DX: Z12.31 Encounter for screening mammogram for malignant neoplasm of breast (principal); M85.80 Other specified disorders of bone density and structure, unspecified site; Z78.0 Asymptomatic menopausal state
CPT/HCPCS: 77063; 77067; 77080

== ENCOUNTER → 2021-03-22 | Outpatient (CLI) | payer MEDICARE ==
--- NOTE | 2021-03-22 15:38 | XR ---
EXAMINATION TYPE: XR ribs RT DATE OF EXAM: 03/22/2021 COMPARISON: NONE HISTORY: Pain TECHNIQUE: 4 views submitted FINDINGS: Widening of the AC joint incidentally noted. May be chronic. Arthropathy of the shoulder. Visualized rib cage intact. IMPRESSION: No acute displaced rib fracture. If symptoms persist consider bone scan.
== END | disposition home or self-care (01) ==
LOC: RADXRMAIN 15:13
PROVIDERS: ATTEND Internal Medicine Critical Care Medicine
DX: R07.81 Pleurodynia (principal)

== ENCOUNTER → 2021-10-11 | Outpatient (CLI) | payer MEDICARE ==
--- NOTE | 2021-10-11 15:45 | CT ---
EXAMINATION TYPE: CT chest wo con DATE OF EXAM: 10/11/2021 COMPARISON: Prior CT October 13, 2019 and older study 2019 HISTORY: Idiopathic pulmonary fibrosis CT DLP: 772.8 mGycm. Automated Exposure Control for Dose Reduction was Utilized. TECHNIQUE: CT scan of the thorax is performed without IV contrast. High resolution protocol with 1 m m sequences obtained at 10 mm intervals in supine and prone technique FINDINGS: LUNGS: Patient has background mild underlying emphysematous change redemonstrated. There is mild line ar scarring redemonstrated in both lung bases. No significant new linear fibrosis or peripheral retic ulation is seen. No pleural effusion or pneumothorax. No suspicious pulmonary masses. No bronchiectas is. No honeycombing.. MEDIASTINUM: Lack of IV contrast and technique are noted to limit evaluation for mediastinal and dami cially hilar adenopathy. There are no definitive greater than 1 cm new mediastinal lymph nodes. No cardiomegaly is seen. Trace pericardial effusion. OTHER: Moderate multilevel spurring is seen throughout the spine is redemonstrated. There is 3.8 x 3 .5 cm exophytic round circumscribed lesion of fat and soft tissue density from upper pole left kidney consistent with angiomyolipoma. This is noted on US 03/03/2011. IMPRESSION: Mild underlying emphysematous change with mild lower lung linear scarring. No suspicious acute pulmonary process currently. No significant progression from prior CTs.
== END | disposition home or self-care (01) ==
LOC: RADCTMAIN 14:40
PROVIDERS: ATTEND Internal Medicine Critical Care Medicine
DX: J43.9 Emphysema, unspecified (principal); J98.4 Other disorders of lung
CPT/HCPCS: 71250

== ENCOUNTER → 2022-01-21 | Outpatient (CLI) | payer MEDICARE ==
--- NOTE | 2022-01-27 09:10 | MM ---
Reason for Exam: Screening (asymptomatic). Last mammogram was performed 1 year(s) and 7 month(s) ago. Patient History: Menarche at age 13. First Full-Term at age 22. Left ovary removed at age 52. Right ovary removed at age 52. Hysterectomy at age 52. Postmenopausal. Patient used Estrogen for 4 years. Patient used Hormonal Contraceptives for 10 years. Risk Values: Danni 5 year model risk: 1.7%. NCI Lifetime model risk: 4.0%. Prior Study Comparison: 08/01/2004 Bilateral Screening Mammogram, [facility]. 05/07/2009 Bilateral Screening Mammogram, [facility]. 06/20/2020 Bilateral Screening Mammogram, [facility]. Tissue Density: The breast tissue is heterogeneously dense. This may lower the sensitivity of mammography. Findings: Analyzed By CAD. Couple minor. Punctate calcifications are present. Chronic nodularity is then left breast There is a new distortion within the mid right breast. Additional evaluation with ultrasound can be performed. Oil cyst is considered. Overall Assessment: Incomplete: need additional imaging evaluation, BI-RAD 0 Management: Diagnostic Breast Ultrasound of the right breast. A negative mammogram report should not preclude additional follow up of suspicious palpable abnormalities. Patient should continue monthly self breast exam. A clinical breast exam by your physician is recommended on an annual basis and results should be correlated with mammographic findings. Electronically signed and approved by: Gume Harris D.O. Radiologis
== END | disposition home or self-care (01) ==
LOC: RADMAMWWP 13:22
PROVIDERS: ATTEND Family Medicine
DX: Z12.31 Encounter for screening mammogram for malignant neoplasm of breast (principal); Z78.0 Asymptomatic menopausal state
CPT/HCPCS: 77063; 77067

== ENCOUNTER → 2022-01-31 | Outpatient (CLI) | payer MEDICARE ==
--- NOTE | 2022-01-31 14:49 | USB ---
Reason for Exam: Additional evaluation requested from abnormal screening. Patient History: Menarche at age 13. First Full-Term at age 22. Left ovary removed at age 52. Right ovary removed at age 52. Hysterectomy at age 52. Postmenopausal. Patient used Estrogen for 4 years. Patient used Hormonal Contraceptives for 10 years. Risk Values: Danni 5 year model risk: 1.7%. NCI Lifetime model risk: 4.0%. Prior Study Comparison: 05/07/2009 Bilateral Screening Mammogram, [facility]. 06/20/2020 Bilateral Screening Mammogram, [facility]. 01/21/2022 Bilateral MG 3D screening mammo w/cad, [facility]. Findings: The periareolar of the right breast, the axilla of the right breast and the retroareolar of the right breast were scanned. Complete ultrasound of the right breast was performed with evaluation the nipple and axillary regions. Hypoechoic peripheral calcified lesion with irregular borders and edge shadowing identified in the right breast just behind the nipple measuring 2.0 x 1.8 x 2.1 cm. No internal vascular flow identified. Patient reports history of trauma to this region 18 months ago. This may represent region of fat necrosis/oil cyst. Overall Assessment: Probably benign, BI-RAD 3 Management: Diagnostic Mammogram of the right breast in 6 months. A clinical breast exam by your physician is recommended on an annual basis and results should be correlated with mammographic findings. Electronically signed and approved by: Jus Gonzales D.O.
== END | disposition home or self-care (01) ==
LOC: RADUSWWP 13:19
PROVIDERS: ATTEND Family Medicine
DX: R92.8 Other abnormal and inconclusive findings on diagnostic imaging of breast (principal); Z78.0 Asymptomatic menopausal state

== ENCOUNTER → 2022-08-06 | Outpatient (CLI) | payer MEDICARE ==
--- NOTE | 2022-08-06 09:37 | MM ---
Reason for Exam: Follow-up at short interval from prior study. Last screening mammogram was performed 6 month(s) ago. Patient History: Menarche at age 13. First Full-Term at age 22. Left ovary removed at age 52. Right ovary removed at age 52. Hysterectomy at age 52. Postmenopausal. Patient used Estrogen for 4 years. Patient used Hormonal Contraceptives for 10 years. Risk Values: Danni 5 year model risk: 1.7%. NCI Lifetime model risk: 3.8%. Prior Study Comparison: 05/07/2009 Bilateral Screening Mammogram, [facility]. 06/20/2020 Bilateral Screening Mammogram, [facility]. 01/21/2022 Bilateral MG 3D screening mammo w/cad, [facility]. Tissue Density: Right: There are scattered fibroglandular densities. Findings: Analyzed By CAD. Focal asymmetric density in the upper-outer aspect right breast appears stable. There is a rounded hypoechoic dense area which was present on the 01/21/2022 comparison of this appears stable. Overall Assessment: Benign, BI-RAD 2 Management: Screening Mammogram of both breasts in 6 months. A clinical breast exam by your physician is recommended on an annual basis and results should be correlated with mammographic findings. This exam should not preclude additional follow-up of suspicious palpable abnormalities. Results were given to the patient verbally at the time of exam. Electronically signed and approved by: Gume Harris D.O. Radiologis
== END | disposition home or self-care (01) ==
LOC: RADMAMWWP 09:03
PROVIDERS: ATTEND Family Medicine
DX: R92.8 Other abnormal and inconclusive findings on diagnostic imaging of breast (principal); Z78.0 Asymptomatic menopausal state
CPT/HCPCS: 77065; G0279; 77061

== ENCOUNTER → 2024-03-30 | Outpatient (CLI) | payer MEDICARE ==
--- NOTE | 2024-03-30 12:56 | MM ---
Reason for Exam: Screening (asymptomatic). Last mammogram was performed 1 year(s) and 1 month(s) ago. Patient History: Menarche at age 13. First Full-Term at age 22. Left ovary removed at age 52. Right ovary removed at age 52. Hysterectomy at age 52. Postmenopausal. Patient used Estrogen for 4 years. Patient used Hormonal Contraceptives for 10 years. Risk Values: Danni 5 year model risk: 1.7%. NCI Lifetime model risk: 3.5%. Prior Study Comparison: 01/21/2022 Bilateral MG 3D screening mammo w/cad, [facility]. 08/06/2022 Right MG 3D diag mammo w/cad RT, [facility]. 02/09/2023 Bilateral MG 3D screening mammo w/cad, [facility]. Tissue Density: There are scattered areas of fibroglandular density. Findings: Analyzed By CAD. Right breast: There is no suspicious group of microcalcifications or new suspicious mass. Benign-appearing calcifications right breast. Stable appearing suspected oil cyst. Left breast: There is no suspicious group of microcalcifications or new suspicious mass. Benign-appearing calcifications left breast. Overall Assessment: Benign, BI-RAD 2 Management: Screening Mammogram of both breasts in [address] [facility] will attempt to contact patient to return for supplemental views and ultrasound if indicated. Patient should continue monthly self-breast exams. A clinical breast exam by your physician is recommended on an annual basis. This exam should not preclude additional follow-up of suspicious palpable abnormalities. Note on Danni scores and lifetime risk: 1. A Danni score greater than 3% is considered moderate risk. If this is the case, consider specialist referral to assess eligibility for a risk reducing agent. 2. If overall lifetime risk for the development of breast cancer is 20% or higher, the patient may qualify for future screening with alternating mammogram and breast MRI. [facility], , 03/30/2024 12:51 PM. Electronically signed and approved by: Jn Bowie DO
== END | disposition home or self-care (01) ==
LOC: RADMAMWWP 11:15
PROVIDERS: ATTEND Family Medicine
DX: Z12.31 Encounter for screening mammogram for malignant neoplasm of breast (principal); Z78.0 Asymptomatic menopausal state; R92.323 Mammographic fibroglandular density, bilateral breasts
CPT/HCPCS: 77063; 77067

== ENCOUNTER → 2024-11-08 | Outpatient (CLI) | payer MEDICARE ==
[2024-11-08 11:17] LABS: African American GFR (CKD) 84 (>60 ml/min/1.73 sqM); Blood Urea Nitrogen 20 mg/dL (7-17); Non-African American GFR(CKD) 73 (>60 ml/min/1.73 sqM)
--- NOTE | 2024-11-08 16:48 | CT ---
EXAMINATION TYPE: CT chest w con DATE OF EXAM: 11/08/2024 11:48 AM COMPARISON: 07/28/2021 09/30/2024. CLINICAL INDICATION: Female, 79 years old with history of R91.1 LUNG NODULE; PHH, lung nodule TECHNIQUE: Multiple axial images were obtained through the chest. Sagittal and coronal reformats were created for review. MIP was performed on a separate workstation. Contrast used:100 mL of Isovue 300 with IV Contrast (None if empty) Oral contrast used: (None if empty) CT DLP: 595 mGycm, Automated exposure control for dose reduction was used. FINDINGS: LUNGS/ PLEURA: * 4 mm left upper lobe pulmonary nodule series 3 image 35. * 8 mm right lower lobe medial pulmonary nodule series 3 image 47. * 6 mm right perihilar lower lobe pulmonary nodule series 3 image 37. * intrafissural lymph node series 3 image 38. No focal consolidation, pneumothorax or pleural effusion. Mild centrilobular emphysema changes. AIRWAY: Patent and unremarkable. HEART: Size within normal limits. No significant coronary artery calcifications. MEDIASTINUM: No gross evidence of adenopathy. VASCULATURE: No aortic aneurysm. MUSCULOSKELETAL: Severe disc degeneration changes are present throughout the thoracolumbar spine seco ndary to osteophyte formation and facet joint arthropathy. SOFT TISSUES/LYMPH NODES: Unremarkable. LOWER NECK: No significant findings. UPPER ABDOMEN: Fat-containing tumor of the left kidney medially and posteriorly measuring 4.5 x 3.6 c m. IMPRESSION: 1. No evidence for acute process. 2. Scattered pulmonary nodules short-term follow-up in 3-6 months recommended. Some of these are Not clearly seen on prior high resolution scans. Measuring up to 8 mm in the medial aspect of the right lower lung. 3. 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 Follow up recommendations for incidental pulmonary nodules, if there are any, are per [employer] or [employer]. https://radiopaedia.org/articles/xegdgpgphz-yobhbli-nevowzhlq-[email or web address]?lang=us [facility], , 11/08/2024 4:46 PM
== END | disposition home or self-care (01) ==
LOC: RADCTMAIN 10:18
PROVIDERS: ATTEND Internal Medicine Critical Care Medicine
DX: R91.8 Other nonspecific abnormal finding of lung field (principal); D17.71 Benign lipomatous neoplasm of kidney
CPT/HCPCS: 82565; 84520; 71260; 36415; Q9967

== ENCOUNTER 2024-11-29 16:52 | Emergency (ER) | payer MEDICARE ==
[2024-11-29 16:56] VITALS: TEMP 97.9
--- NOTE | 2024-11-29 17:07 | ED ---
General Adult HPI - General Chief complaint: Shortness of Breath Stated complaint: difficulty breathing, panic attacks Time Seen by Provider: 11/29/24 16:54 Source: patient, RN notes reviewed Mode of arrival: ambulatory Limitations: no limitations - History of Present Illness Initial comments: Patient is a 79-year-old female present to the emergency department with concerns with difficulty breathing. Symptoms have been present for the past 3 days. Patient has felt anxious. Patient does have history of some similar dyspnea associated with interstitial lung disease. Patient does not have history of anxiety. No chest pain. No leg swelling. No wheezing. Patient does have an inhaler - Related Data Home Medications Medication Instructions Recorded Confirmed Albuterol Sulfate [Proair Hfa] 2 puff INHALATION Q6HR PRN 04/14/16 10/07/18 Cholecalciferol [Vitamin D3 (25 4,000 unit PO DAILY 04/14/16 10/07/18 Mcg = 1000 Iu)] Cranberry + Vit C 1 tab PO BID 04/14/16 10/07/18 Triamterene-Hctz 37.5-25Mg 1 tab PO DAILY 04/14/16 10/07/18 [Maxzide 37.5-25] Magnesium Oxide 400 mg PO DAILY 10/05/18 10/07/18 Previous Rx's Medication Instructions Recorded Acetaminophen Tab [Tylenol] 1,000 mg PO Q6HR PRN tab 10/08/18 Allergies Allergy/AdvReac Type Severity Reaction Status Date / Time adhesive tape Allergy red skin Verified 11/29/24 16:56 with prolonged use montelukast [From Singulair] Allergy depression Verified 11/29/24 16:56 mold, mildew Allergy Cough Uncoded 11/29/24 16:56 Review of Systems ROS Statement: Those systems with pertinent positive or pertinent negative responses have been documented in the HPI. ROS Other: All systems not noted in ROS Statement are negative. Constitutional: Denies: fever Eyes: Denies: eye pain ENT: Denies: ear pain Respiratory: Reports: as per HPI, cough (Chronic), dyspnea Cardiovascular: Denies: chest pain Gastrointestinal: Denies: abdominal pain Musculoskeletal: Denies: back pain Past Medical History Past Medical History: Eye Disorder, Hypertension, Osteoarthritis (OA) Additional Past Medical History / Comment(s): optical migraines. told years ag o-irregular heartbeat. Tested positive for lupus 20 yrs ago. SPINAL STENOSIS, chronic cough, swelling and bruising on ankles, CT showed "irregularities in bottom of lung", urinary leakage, pulmonary fibrosis History of Any Multi-Drug Resistant Organisms: None Reported Past Surgical History: Section, Hysterectomy, Orthopedic Surgery Additional Past Surgical History / Comment(s): araseli carpal tunnel, rt shoulder ro tator cuff. EXC ARASELI CATARACT Past Anesthesia/Blood Transfusion Reactions: Motion Sickness Additional Past Anesthesia/Blood Transfusion Reaction / Comment(s): "sensitive to anesthesia-real groggy after" Past Psychological History: No Psychological Hx Reported Smoking Status: Former smoker Past Alcohol Use History: Occasional Past Drug Use History: None Reported - Past Family History Father Family Medical History: Cancer Additional Family Medical History / Comment(s): pancreatic cancer Mother Family Medical History: Deep Vein Thrombosis (DVT) General Exam Limitations: no limitations General appearance: alert, in no apparent distress Head exam: Present: normocephalic Eye exam: Present: normal appearance Neck exam: Present: normal inspection Respiratory exam: Present: normal lung sounds bilaterally. Absent: respiratory distress, wheezes Cardiovascular Exam: Present: regular rate, normal rhythm GI/Abdominal exam: Present: soft. Absent: tenderness Extremities exam: Present: normal inspection. Absent: pedal edema, calf tenderness Neurological exam: Present: alert Psychiatric exam: Present: normal affect, normal mood Skin exam: Present: normal color Course Vital Signs 11/29/24 11/29/24 11/29/24 16:53 16:55 18:56 Temperature 97.9 F Pulse Rate 89 80 Respiratory 22 30 H 20 Rate Blood Pressure 144/80 144/87 O2 Sat by Pulse 98 98 Oximetry EKG Findings - EKG Results: EKG: interpreted by ERMD, sinus rhythm, normal axis, normal QRS, normal ST/T Medical Decision Making - Medical Decision Making Was pt. sent in by a medical professional or institution (, PA, SHOE TRIMMER, urgent care, hospital, or [facility]...) When possible be specific @ -No Did you speak to anyone other than the patient for history (EMS, parent, family, police, friend...)? What history was obtained from this source @ -No Did you review nursing and triage notes (agree or disagree)? Why? @ -I reviewed and agree with nursing and triage notes Were old charts reviewed (outside hosp., previous admission, EMS record, old EKG, old radiological studies, urgent care reports/EKG's, [facility] records)? Report findings @ -No old charts were reviewed Differential Diagnosis (chest pain, altered mental status, abdominal pain women, abdominal pain men, vaginal bleeding, weakness, fever, dyspnea, syncope, headache, dizziness, GI bleed, back pain, seizure, CVA, palpatations, mental health, musculoskeletal)? @ -Differential Dyspnea: Coronary syndrome, arrhythmia, tamponade, asthma, COPD, pulmonary embolism, pneumonia, pneumothorax, pulmonary effusion, anaphylaxis, diabetic ketoacidosis, flailed chest, pulmonary contusion, diaphragmatic rupture, anemia, neuromuscular, this is not meant to be an all-inclusive list. EKG interpreted by me (3pts min.). @ -As above X-rays interpreted by me (1pt min.). @ -Chest x-ray without acute abnormality CT interpreted by me (1pt min.). @ -None done U/S interpreted by me (1pt. min.). @ -None done What testing was considered but not performed or refused? (CT, X-rays, U/S, labs)? Why? @ -None What meds were considered but not given or refused? Why? @ -None Did you discuss the management of the patient with other professionals (professionals i.e. , PA, SHOE TRIMMER, lab, RT, psych nurse, drug abuse social worker, mason foreman/superintendant, teacher, debt recovery officer, immigration case manager)? Give summary @ -No Was smoking cessation discussed for >3mins.? @ -No Was critical care preformed (if so, how long)? @ -No Were there social determinants of health that impacted care today? How? (Homelessness, low income, unemployed, alcoholism, drug addiction, transportation, low edu. Level, literacy, decrease access to med. care, group home, re hab)? @ -No Was there de-escalation of care discussed even if they declined (Discuss DNR or withdrawal of care, Hospice)? DNR status @ -No What co-morbidities impacted this encounter? (DM, HTN, Smoking, COPD, CAD, Cancer, CVA, ARF, Chemo, Hep., AIDS, mental health diagnosis, sleep apnea, morbid obesity)? @ -History of interstitial lung disease Was patient admitted / discharged? Hospital course, mention meds given and route, prescriptions, significant lab abnormalities, going to OR and other p ertinent info. @ -Patient presents with dyspnea, questioning if anxiety is causing this. Evaluation unremarkable. Patient reevaluated and feels much better following Ativan. Patient is comfortable with discharge home. Undiagnosed new problem with uncertain prognosis? @ -No Drug Therapy requiring intensive monitoring for toxicity (Heparin, Nitro, Insulin, Cardizem)? @ -No Were any procedures done? @ -No Diagnosis/symptom? @ -Dyspnea Acute, or Chronic, or Acute on Chronic? @ -Acute Uncomplicated (without systemic symptoms) or Complicated (systemic symptoms)? @ -Default Side effects of treatment? @ -No Exacerbation, Progression, or Severe Exacerbation? @ -No Poses a threat to life or bodily function? How? (Chest pain, USA, CO, pneumonia, PE, COPD, DKA, ARF, appy, cholecystitis, CVA, Diverticulitis, Homicidal, Suicidal, threat to staff... and all critical care pts) @ -No - Lab Data Result diagrams: 11/29/24 17:05 11/29/24 17:05 Lab Results 11/29/24 11/29/24 11/29/24 Range/Units 17:05 17:05 17:05 WBC 8.31 (4.50-10.00) 10*3/uL RBC 4.77 (4.10-5.20) 10*6/uL Hgb 14.1 (12.0-15.0) g/dL Hct 41.5 (37.2-46.3) % MCV 87.0 (80.0-97.0) fL MCH 29.6 (27.0-32.0) pg MCHC 34.0 (32.0-37.0) g/dL Plt Count 311 (140-440) 10*3/uL MPV 9.2 L (9.5-12.2) fL Immature Gran % (Auto) 0.2 % Neutrophils % 70.9 % Lymphocytes % 18.9 % Monocytes % 8.3 % Eosinophils % 0.7 % Basophils % 1.0 % Immature Gran # 0.02 (0.00-0.04) 10*3/uL Neutrophils # 5.89 (1.80-7.70) 10*3/uL Lymphocytes # 1.57 (0.90-5.00) 10*3/uL Monocytes # 0.69 (0.20-1.00) 10*3/uL Eosinophils # 0.06 (0.04-0.35) 10*3/uL Basophils # 0.08 (0.00-0.10) 10*3/uL PT 11.3 (10.0-12.5) sec INR 1.0 (<1.2) APTT 23.7 (22.0-30.0) sec D-Dimer 0.30 (<0.60) mg/L FEU Sodium 136 L (137-145) mmol/L Potassium 3.8 (3.5-5.1) mmol/L Chloride 103 (98-107) mmol/L Carbon Dioxide 22 (22-30) mmol/L Anion Gap 11 mmol/L BUN 13 (7-17) mg/dL Creatinine 0.75 (0.52-1.04) mg/dL Est GFR (CKD-EPI)AfAm 89 (>60 ml/min/1.73 sqM) Est GFR (CKD-EPI)NonAf 77 (>60 ml/min/1.73 sqM) Glucose 129 H (74-99) mg/dL Plasma Lactic Acid Lenin (0.7-2.0) mmol/L Calcium 9.8 (8.4-10.2) mg/dL Magnesium 1.9 (1.6-2.3) mg/dL Total Bilirubin 1.0 (0.2-1.3) mg/dL AST 31 (14-36) U/L ALT 22 (4-34) U/L Alkaline Phosphatase 91 (38-126) U/L Troponin I (0.000-0.034) ng/mL NT-Pro-B Natriuret Pep 506 pg/mL Total Protein 6.6 (6.3-8.2) g/dL Albumin 4.4 (3.5-5.0) g/dL Influenza Type A (PCR) (Not Detectd) Influenza Type B (PCR) (Not Detectd) RSV (PCR) (Not Detectd) SARS-CoV-2 (PCR) (Not Detectd) 11/29/24 11/29/24 11/29/24 Range/Units 17:05 17:05 17:34 WBC (4.50-10.00) 10*3/uL RBC (4.10-5.20) 10*6/uL Hgb (12.0-15.0) g/dL Hct (37.2-46.3) % MCV (80.0-97.0) fL MCH (27.0-32.0) pg MCHC (32.0-37.0) g/dL Plt Count (140-440) 10*3/uL MPV (9.5-12.2) fL Immature Gran % (Auto) % Neutrophils % % Lymphocytes % % Monocytes % % Eosinophils % % Basophils % % Immature Gran # (0.00-0.04) 10*3/uL Neutrophils # (1.80-7.70) 10*3/uL Lymphocytes # (0.90-5.00) 10*3/uL Monocytes # (0.20-1.00) 10*3/uL Eosinophils # (0.04-0.35) 10*3/uL Basophils # (0.00-0.10) 10*3/uL PT (10.0-12.5) sec INR (<1.2) APTT (22.0-30.0) sec D-Dimer (<0.60) mg/L FEU Sodium (137-145) mmol/L Potassium (3.5-5.1) mmol/L Chloride (98-107) mmol/L Carbon Dioxide (22-30) mmol/L Anion Gap mmol/L BUN (7-17) mg/dL Creatinine (0.52-1.04) mg/dL Est GFR (CKD-EPI)AfAm (>60 ml/min/1.73 sqM) Est GFR (CKD-EPI)NonAf (>60 ml/min/1.73 sqM) Glucose (74-99) mg/dL Plasma Lactic Acid Lenin 1.1 (0.7-2.0) mmol/L Calcium (8.4-10.2) mg/dL Magnesium (1.6-2.3) mg/dL Total Bilirubin (0.2-1.3) mg/dL AST (14-36) U/L ALT (4-34) U/L Alkaline Phosphatase (38-126) U/L Troponin I 0.015 (0.000-0.034) ng/mL NT-Pro-B Natriuret Pep pg/mL Total Protein (6.3-8.2) g/dL Albumin (3.5-5.0) g/dL Influenza Type A (PCR) Not Detected (Not Detectd) Influenza Type B (PCR) Not Detected (Not Detectd) RSV (PCR) Not Detected (Not Detectd) SARS-CoV-2 (PCR) Not Detected (Not Detectd) Disposition Clinical Impression: Dyspnea Disposition: HOME SELF-CARE Condition: Stable Instructions (If sedation given, give patient instructions): Dyspnea (ED), Anxiety (ED) Additional Instructions: Extra Ativan to take home with you. Please do follow-up with your primary care physician in the next couple of days for recheck. Return for fever, cough, chest pain, or difficulty breathing, worsening or change in symptoms or other concerns. Is patient prescribed a controlled substance at d/c from ED?: No Referrals: Agnieszka Bran MD [Primary Care Provider] - 1-2 days Time of Disposition: 19:34
[2024-11-29] MEDS: LORazepam 1 MG TAB PO STA ×2 (17:15→19:56)
[2024-11-29 17:51] LABS: Basophils # (A) 0.08 10*3/uL (0.00-0.10); Basophils % (A) 1.0 %; Eosinophils # (A) 0.06 10*3/uL (0.04-0.35); Eosinophils % (A) 0.7 %; HCT 41.5 % (37.2-46.3); HGB 14.1 g/dL (12.0-15.0); Lymphocytes # (A) 1.57 10*3/uL (0.90-5.00); Lymphocytes % (A) 18.9 %; MCH 29.6 pg (27.0-32.0); MCHC 34.0 g/dL (32.0-37.0); MCV 87.0 fL (80.0-97.0); Monocytes # (A) 0.69 10*3/uL (0.20-1.00); Monocytes % (A) 8.3 %; Neutrophils # (A) 5.89 10*3/uL (1.80-7.70); Neutrophils % (A) 70.9 %; Platelet Count 311 10*3/uL (140-440); RBC 4.77 10*6/uL (4.10-5.20); RDW 13.6 % (11.5-14.5); WBC 8.31 10*3/uL (4.50-10.00)
[2024-11-29 18:03] LABS: INR 1.0 (<1.2); Partial Thromboplastin Time 23.7 sec (22.0-30.0); Prothrombin Time 11.3 sec (10.0-12.5)
[2024-11-29 18:09] LABS: ALT 22 U/L (4-34); AST 31 U/L (14-36); African American GFR (CKD) 89 (>60 ml/min/1.73 sqM); Albumin 4.4 g/dL (3.5-5.0); Alkaline Phosphatase 91 U/L (38-126); Anion Gap 11 mmol/L; Blood Urea Nitrogen 13 mg/dL (7-17); Calcium 9.8 mg/dL (8.4-10.2); Carbon Dioxide 22 mmol/L (22-30); Chloride 103 mmol/L (98-107); Glucose 129 mg/dL (74-99); Magnesium 1.9 mg/dL (1.6-2.3); Non-African American GFR(CKD) 77 (>60 ml/min/1.73 sqM); Potassium 3.8 mmol/L (3.5-5.1); Sodium 136 mmol/L (137-145); Total Protein 6.6 g/dL (6.3-8.2)
[2024-11-29 18:17] LABS: NT-Pro-B-Type Natriuretic Pept 506 pg/mL
[2024-11-29 18:27] LABS: RSV Not Detected (Not Detectd)
--- NOTE | 2024-11-29 18:47 | XR ---
EXAMINATION TYPE: XR chest 2V DATE OF EXAM: 11/29/2024 5:41 PM COMPARISON: None. CLINICAL INDICATION: Female, 79 years old with history of difficulty breathing, TECHNIQUE: XR chest 2V view(s) obtained. FINDINGS: The heart size is normal. The pulmonary vasculature is normal. The lungs are clear. IMPRESSION: 1. No acute pulmonary process. [facility], Workstation: [facility], 11/29/2024 6:45 PM
[2024-11-29 19:27] VITALS: BP 144/87; PULSE 80; RESP 20
== END 2024-11-29 20:01 | disposition home or self-care (01) ==
LOC: EC 16:52
DX: R06.02 Shortness of breath (principal); Z87.09 Personal history of other diseases of the respiratory system; Z87.891 Personal history of nicotine dependence; Z91.048 Other nonmedicinal substance allergy status; Z88.8 Allergy status to other drugs, medicaments and biological substances; Z77.120 Contact with and (suspected) exposure to mold (toxic)
CPT/HCPCS: 36415; 71046; 80053; 83605; 83735; 83880; 84484; 85025; 85379; 85610; 85730; 87636; 93005; 99285